=== PATIENT | male | born 1965 | race Asian ===

== ENCOUNTER 2017-03-23 21:33 | Emergency (ER) | payer BC, OTHER ==
[~2017-03-23] VITALS: Ht 180.3 cm; Wt 86.2 kg
[2017-03-23 21:38] VITALS: BP 119/62
[2017-03-23] MEDS ORDERED: ONDANSETRON HCL/PF 4 MG/2 ML VIAL IVP ONE (22:00)
[2017-03-23] MEDS ORDERED: IV NS 0.9% 1,000 ML BAG IV ONE (22:00)
--- NOTE | 2017-03-23 22:11 | NUR ---
Patient does not wish to proceed with medical care recommended by Dr. WALTERS. Patient given information related to possible complications, up to and including , which could occur as a result of leaving the hospital at this time. Patient verbalizes understanding of risks involved due to leaving against medical advice. Patient has signed AMA form.
== END 2017-03-23 22:11 | disposition left against medical advice (07) ==
LOC: ER 21:34
DX: R55 Syncope and collapse (principal)
CPT/HCPCS: A4606; Z7610

== ENCOUNTER 2017-09-03 11:43 | Emergency (ER) | payer BC ==
[~2017-09-03] VITALS: Ht 177.8 cm; Wt 84.8 kg
[2017-09-03 11:43] VITALS: BP 121/81
--- NOTE | 2017-09-03 11:43 | NUR ---
BIBRA 80 FROM HOME C/O LOW BP, 60/[address] TO ER, [id number]. NAD NOTED. PT AAO X4, AMB WITH STEADY GAIT. RR EVEN AND UNLABORED. VSS. PENDING MD MAYA.
[2017-09-03] MEDS ORDERED: IV NS 0.9% 1,000 ML BAG IV ONE (12:00)
[2017-09-03] MEDS ORDERED: ENAL10TA PO (12:07)
[2017-09-03] MEDS ORDERED: ALLO100T PO (12:07)
[2017-09-03] MEDS ORDERED: AMLO2.5T PO (12:07)
[2017-09-03] MEDS ORDERED: ASPI81TA2 PO (12:07)
[2017-09-03] MEDS ORDERED: CARV12.52 PO (12:07)
[2017-09-03] MEDS ORDERED: OMEG100037 PO (12:07)
[2017-09-03] MEDS ORDERED: ATOR40TA PO (12:07)
--- NOTE | 2017-09-03 12:15 | NUR ---
PT FAMILY ON BEDSIDE
[2017-09-03 12:20] LABS: BASOPHILS % (AUTO) 0.7 % (0.0-2.0); EOSINOPHILS % (AUTO) 0.7 % (0.0-6.0); HEMATOCRIT 30 % (39-51); HEMOGLOBIN 10.1 g/dL (13.5-17.5); LYMPHOCYTES # (AUTO) 1.2 /CMM (0.8-4.8); LYMPHOCYTES % (AUTO) 17.3 % (20.0-44.0); MEAN CORPUSCULAR HEMOGLOBIN 37 PG (26.0-33.0); MEAN CORPUSCULAR HGB CONC 33 g/dl (31.0-36.0); MEAN CORPUSCULAR VOLUME 110 fL (80-96); MONOCYTES # (AUTO) 0.6 /CMM (0.1-1.30); MONOCYTES % (AUTO) 8.7 % (2.0-12.0); NEUTROPHILS # (AUTO) 5.2 /CMM (1.8-8.9); NEUTROPHILS % (AUTO) 72.6 % (43.0-81.0); PLATELET COUNT (AUTO) 111 /CMM (150-450); RDW COEFFICIENT OF VARIATION 15.3 (11.5-15.0); RED BLOOD CELL COUNT(AUTO) 2.75 MIL/uL (4.5-6.0)
[2017-09-03 12:34] LABS: INR 1.12 (0.87-1.13); PROTHROMBIN TIME 11.6 SECS (9.5-12.7)
[2017-09-03 12:35] LABS: ALANINE AMINOTRANSFERASE 119 U/L (12-78); ALBUMIN 2.3 g/dL (3.4-5.0); ALKALINE PHOSPHATASE 131 U/L (46-116); ASPARTATE AMINOTRANSFERASE 144 U/L (15-37); BILIRUBIN,DIRECT 0.5 mg/dL (0.0-0.2); BILIRUBIN,TOTAL 1.4 mg/dL (0.2-1.0); CALCIUM, SERUM 7.9 mg/dL (8.5-10.1); CARBON DIOXIDE 27 mmol/L (21-32); CHLORIDE 106 mmol/L (98-107); GLUCOSE 129 mg/dL (74-106); POTASSIUM 5.2 mmol/L (3.5-5.1); SODIUM SERUM 136 mmol/L (136-145); TOTAL PROTEIN, SERUM 4.8 g/dL (6.4-8.2); UREA NITROGEN, BLOOD 37 mg/dL (7-18)
[2017-09-03 12:37] LABS: TROPONIN I 0.299 ng/mL (0.00-0.056)
--- NOTE | 2017-09-03 12:56 | NUR ---
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
[2017-09-03] MEDS ORDERED: PANTOPRAZOLE 40 MG VIAL ONE (13:28)
[2017-09-03] MEDS ORDERED: PANTOPRAZOLE 40 MG VIAL IV ONE (13:30)
--- NOTE | 2017-09-03 13:36 | NUR ---
REPORT GIVEN TO MARINA MAYA RN FOR VEL
[2017-09-03 13:43] LABS: APPEARANCE,URINE Slightly Cloudy (CLEAR); BILIRUBIN,URINE Negative (NEGATIVE); BLOOD, URINE Negative Ery/uL (NEGATIVE); COLOR,URINE Yellow (YELLOW); KETONES,URINE 15 (NEGATIVE); LEUKOCYTE ESTERASE ,URINE Negative (NEGATIVE); NITRITE, URINE Negative (NEGATIVE); PROTEIN,URINE Negative (NEGATIVE); UGLUCOSE Negative (NEGATIVE); UROBILINOGEN,URINE 0.2 EU/dL (0.2)
[2017-09-03] MEDS ORDERED: ZOLPIDEM TARTRATE 5 MG TABLET PO PRN (14:00)
[2017-09-03] MEDS ORDERED: Z GUARD REMEDY 2 OZ OINT TP PRN (14:00)
[2017-09-03] MEDS ORDERED: MAGNESIUM HYDROXIDE 30 ML UDC PO PRN (14:00)
[2017-09-03] MEDS ORDERED: MAG HYDROX/AL HYDROX/SIMETH 30 ML UDC PO PRN (14:00)
[2017-09-03] MEDS ORDERED: IV D5/0.45 NACL 500 ML IV PRN (14:00)
[2017-09-03] MEDS ORDERED: HYDROCODONE/APAP 5/325MG 1 EACH TABLET PO PRN (14:00)
[2017-09-03] MEDS ORDERED: ONDANSETRON HCL/PF 4 MG/2 ML VIAL IVP PRN (14:00)
[2017-09-03 14:42] LABS: HEMATOCRIT 31 % (39-51); HEMOGLOBIN 10.4 g/dL (13.5-17.5); MEAN CORPUSCULAR HEMOGLOBIN 36 PG (26.0-33.0); MEAN CORPUSCULAR HGB CONC 34 g/dl (31.0-36.0); MEAN CORPUSCULAR VOLUME 109 fL (80-96); PLATELET COUNT (AUTO) 113 /CMM (150-450); RED BLOOD CELL COUNT(AUTO) 2.84 MIL/uL (4.5-6.0); WHITE BLOOD COUNT (AUTO) 8.1 K/uL (4.3-11.0)
--- NOTE | 2017-09-03 15:04 | NUR ---
Patient's does not wish to proceed with medical care recommended by Dr. Peoples. Patient given information related to possible complications, up to and including , which could occur as a result of leaving the hospital at this time. Patient and pt's verbalizes understanding of risks involved due to leaving against medical advice. Patient has signed AMA form.
[2017-09-03] MEDS ORDERED: ALLOPURINOL 100 MG TABLET PO SCH (17:00)
[2017-09-03 17:16] LABS: RBC,URINE 0-2 /HPF (0-2); WBC,URINE 0-2 /HPF (0-3)
[2017-09-03 17:17] LABS: BACTERIA,URINE None seen /HPF (None Seen); SQUAMOUS EPITHELIAL CELL,UR Few /HPF (None Seen)
[2017-09-03] MEDS ORDERED: PANTOPRAZOLE 40 MG VIAL IV SCH (21:00)
== END 2017-09-03 15:20 | disposition left against medical advice (07) ==
LOC: ER 11:44 → TELE-TD 13:38 → UNDOADMIN 13:38 → ER 15:20
DX: I21.4 Non-ST elevation (NSTEMI) myocardial infarction (principal); K92.2 Gastrointestinal hemorrhage, unspecified; R74.0 Nonspecific elevation of levels of transaminase and lactic acid dehydrogenase [LDH]; R55 Syncope and collapse; I10 Essential (primary) hypertension; E78.00 Pure hypercholesterolemia, unspecified; Z79.82 Long term (current) use of aspirin
CPT/HCPCS: 36415; 71010; 76700; 80048; 80076; 81001; 83605 ×2; 84484 ×2; 85025; 85027; 85730; 86850; 87040 ×2; 87086; 93005; 96361; 96374; 99291; A4606; C9113; J7030; Z7610; 81000-TC